=== PATIENT | female | born 1970 | race Caucasian/White ===

== ENCOUNTER 2017-11-24 00:20 | Emergency (ER) | payer OTHER, SELFPAY ==
[2017-11-24 00:22] VITALS: BP 121/89; PULSE 76; RESP 15; TEMP 36.3; BMI 35.4
--- NOTE | 2017-11-24 00:50 | ED.VISSUMM ---
- ER Visit Summary Date of Service: 11/24/17 Chief Complaint: Posterior right elbow redness History of Present Illness: The patient is a 47 F right-hand dominant. No prior surgery to her right elbow or upper extremity. Friday night she noticed some mild redness to her right posterior elbow. It has gotten somewhat larger. Minimally swollen. She has full range of motion the elbow. Only mild soreness. No prior history. Denies any recent trauma. She denies any fever. She thought initially some the may have bit her but never actually saw anything bite her. Physical Examination: Well-appearing middle-age female. Vital signs are stable afebrile. HEENT exam unremarkable lungs are clear equal symmetrical bilaterally. Heart regular rate and rhythm no murmur. She is moving all 4 extremities. They are neurovascularly intact. The right posterior elbow has about a 2 in.? area of redness. This could be a local allergic reaction versus an early cellulitis. There is no bursitis at this time. There is no effusion or swelling of the joint. She has full range of motion of the right elbow with no signs of septic joint. There is no lymphangitic streaking. There is no axillary lymphadenopathy. 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 Test Results: None. Patient was offered an x-ray from a fall she had a month ago which she deferred and clinically I doubt it was to be of significant benefit. Emergency Department Course and Treatment: Patient be started on Keflex 500 4 times daily for 10 days. Ice to the area. Motrin for pain and inflammation. She knows to return immediately if increasing pain or increasing redness or joint swelling. Treatment Plan: Keflex 500 mg 4 times a day for 10 days. Follow-up her primary care physician Dr. Reyna as needed. Disposition: Discharge Impression: Acute right posterior elbow superficial skin cellulitis This note was generated with [employer] dictation software. It may contain incorrect words, spelling, and punctuation that were not noted in review of the chart prior to signing ED Disposition - Plan for ED Patient: Chief Complaint: Upper Extremity Injury Referrals: Chele Reyna MD [Primary Care Provider] -
--- NOTE | 2017-11-24 00:52 | ED.DEP ---
ED Disposition - Plan for ED Patient: Disposition: Home or Assisted Living Chief Complaint: Upper Extremity Injury Instructions: ED Infec Skin Cellulitis Prescriptions: Cephalexin [Keflex] 500 mg PO Q6 #40 cap Referrals: Chele Reyna MD [Primary Care Provider] - As Needed Additional Instructions: This is either early skin infection versus a local allergic reaction. Keflex as an antibiotic he will take 1 pill 4 times a day for the next 10 days. Motrin for pain and inflammation. Return immediately if increasing redness, elbow swelling or severe pain. Follow-up with your doctor if not improving.
--- NOTE | 2017-11-24 00:55 | DCINST.ED_ITS ---
ED Disposition - Plan for ED Patient: Disposition: Home or Assisted Living Chief Complaint: Upper Extremity Injury Instructions: ED Infec Skin Cellulitis Prescriptions: Cephalexin [Keflex] 500 mg PO Q6 #40 cap Referrals: Chele Reyna MD [Primary Care Provider] - As Needed Additional Instructions: This is either early skin infection versus a local allergic reaction. Keflex as an antibiotic he will take 1 pill 4 times a day for the next 10 days. Motrin for pain and inflammation. Return immediately if increasing redness, elbow swelling or severe pain. Follow -up with your doctor if not improving.
[2017-11-24] MEDS: Cephalexin 250 MG Capsule 500 MG PO (00:58)
== END 2017-11-24 01:04 | disposition home or self-care (01) ==
LOC: ED 01:04
PROVIDERS: Emergency Provider Emergency Medicine; Family Provider Family Medicine; PCP Family Medicine
DX: L03.113 Cellulitis of right upper limb (principal)
CPT/HCPCS: 99282

== ENCOUNTER → 2017-12-05 06:40 | Outpatient (CLI) | payer OTHER, SELFPAY ==
--- NOTE | 2017-12-05 07:00 | MRI_ITS ---
STUDY: MRI LEFT FOREFOOT WITHOUT CONTRAST REASON FOR EXAM: Second toe pain for 6 months, no specific injury. TECHNIQUE: Standardized fat and water weighted pulse sequences were obtained in all 3 orthogonal planes. COMPARISON: None. FINDINGS: Normal metatarsophalangeal joint of the hallux. Normal tibial and fibular sesamoids, with normal sesamoids-first metatarsal articulations. Normal interphalangeal joint of the hallux. Normal proximal and distal phalanges of the great toe. Normal medial and lateral heads of the flexor hallucis brevis tendons. Normal flexor and extensor hallucis longus tendons. There is a tear of the lateral aspect of the plantar plate of the second metatarsophalangeal joint (T2 coronal series 9 images 17, 18; inversion recovery sagittal images 13, 14) with dorsal dislocation of the second metatarsophalangeal joint (T1 sagittal image 12). Normal third through fifth metatarsophalangeal (MTP) joints. Normal interphalangeal joints of the second through fifth toes. There is slight bone edema of the second metatarsal head and second proximal phalangeal base (inversion recovery sagittal images 12, 13). Normal proximal, middle and distal phalanges of the third through fifth toes. Normal first through fourth intermetatarsal spaces. Normal flexor and extensor tendons of the second through fifth toes. There is no metatarsal stress fracture. Normal intrinsic muscles of the forefoot. There is a small ganglion cyst dorsal to the navicular-medial cuneiform articulation (inversion recovery sagittal images 6, 7) measuring 1 cm in length. MRI/Lower Ext/No Jt/w/o IMPRESSION: Tear of the plantar plate of the second metatarsophalangeal joint with dorsal dislocation of the second metatarsophalangeal joint. Small ganglion cyst dorsal to the navicular-medial cuneiform articulation. Electronically Signed: Daniel Wolff MD at 9:09 EST Tel , Service support ,
== END ==
PROVIDERS: Family Provider Family Medicine; PCP Family Medicine; Visit Provider Podiatrist
DX: S93.149A Subluxation of metatarsophalangeal joint of unspecified toe(s), initial encounter (principal); M77.52 Other enthesopathy of left foot and ankle; X58.XXXA Exposure to other specified factors, initial encounter; Y93.9 Activity, unspecified; Y92.9 Unspecified place or not applicable; Y99.9 Unspecified external cause status
CPT/HCPCS: 73718

== ENCOUNTER 2018-01-12 11:15 | Day surgery (SDC) | payer OTHER, SELFPAY ==
[2018-01-12 11:48] LABS: Internal QC Validated? YES +Cl - CLEAR BKGD; Pregnancy, Urine Negative Negative
[2018-01-12 12:02] VITALS: BP 107/74; PULSE 70; RESP 16; TEMP 37.1; O2SAT 96; BMI 35.9
[2018-01-12 12:08] LABS: Absolute Lymphocyte Count 1.84 X10^3/ul (0.83-4.51); Absolute Neutrophil Count 4.7 X10^3/uL (2.0-7.7); Basophil# 0.03 X10^3/uL; Basophil% 0.4 % (0-1); Eosinophil# 0.08 X10^3/uL; Eosinophils% 1.1 % (0-5); Hematocrit 40.1 % (37-47); Hemoglobin 14.1 g/dl (12.0-15.0); Lymphocyte # 1.84 X10^3/ul (4.0); Lymphocyte % 25.5 % (19-41); Mean Corp Hgb Conc 35.2 g/gl (32-36); Mean Corpuscular Volume 85.3 fL (81-99); Mean Platelet Vol. 9.6 fl (6.2-12.0); Monocyte# 0.56 X10^3/uL; Monocyte% 7.8 % (0-10); Neutrophil # 4.67 X10^3/uL (2.7-7.7); Neutrophil % 64.8 % (47-70); Platelet Count 194 K/mm3 (150-450); RBC Distribution Width SD 36.7 fl (35.1-43.9); White Blood Count 7.2 K/mm3 (4.4-11.0)
[2018-01-12 12:12] LABS: POSITIVE COUNT NO; POSITIVE DIFFERENTIAL NO; POSITIVE MORPHOLOGY NO
[2018-01-12 12:24] LABS: AST(SGOT) 12 U/L (15-37); Alanine Aminotransfer ALT/SGPT 15 U/L (13-56); Albumin, Serum 3.5 g/dL (3.2-5.0); Alkaline Phosphatase 58 U/L (45-117); Anion Gap 8 (5-15); BUN 13 mg/dL (7-18); BUN/Creat Ratio 19.6 RATIO (10-20); Calcium,Total 8.3 mg/dL (8.5-10.1); Chloride 108 mmol/L (98-107); Creatinine, Serum 0.66 mg/dL (0.55-1.02); EST Glomerular Filtration Rate 101 mL/min (>60); Est Glom Filt Rate - Afr Amer 122 mL/min (>60); Estimated Creatinine Clearance 89.04 ml/min; Globulin 3.6 g/dL (2.2-4.2); Glucose 83 mg/dL (74-106); Protein, Total 7.1 g/dL (6.4-8.2); Sodium Level 139 mmol/L (136-145)
--- NOTE | 2018-01-12 13:00 | RAD_ITS ---
STUDY: X-RAY - RIGHT FOOT CLINICAL: Female, 47 years old. right foot pain, repair 2nd metatarsal phalangeal plantar plate TECHNIQUE: 2 view(s) of the foot. COMPARISON: None. FINDINGS: Postoperative changes noted in the distal second metatarsal where hardware has been placed. No postoperative complication noted. There is normal postoperative soft tissue swelling and subcutaneous emphysema. There is also been osteotomy in the distal aspect of the second proximal phalanx. RAD/Foot 2 Views IMPRESSION: Postoperative changes to the second metatarsal head and distal aspect of the second proximal phalanx. Electronically Signed: Dat Muir MD at 17:41 EDT , Service support ,
--- NOTE | 2018-01-12 13:00 | BON_PTH ---
PATIENT: KIERRA FRIEDMAN [place] [facility] [place][id number] AGE/SX: 47/F ROOM: RE01/12/[address]: Dr. Jose F Fox DPM : 1970 BED: DIS: 01/12/2018 SPEC #: [id number] RECD: 01/12/18 15:52 STATUS: SHIELA REAn #: [id number] SHANICE: 01/12/18 13:[address]: Jose F Fox DEPT: SURGICAL PATHOLOGY RECD BY: Rafy Lakhani ENTERED: 01/13/18 10:48 SP TYPE: Bone OTHR DR: Dr. Chele Reyna MD Tissues: Bone of foot, NOS Procedures: Decalcification bone/plaque Surgery Specimen Level III HEADER OPERATION: Left foot, repair 2nd metatarsophalangeal plantar plate PRE-OP DIAGNOSIS: Torn plantar plate, second MTPJ left foot; second digit hammertoe, left TISSUE SUBMITTED: Second toe left bone MICROSCOPIC DIAGNOSIS Second toe bone: A piece of bone with reactive changes, clinically hammertoe. MUNIR:orly 01/20/18 MICROSCOPIC DESCRIPTION Slides are reviewed. GROSS DESCRIPTION Received in fixative is one container labeled with the patient's name and designated left second toe bone. The specimen consists of a piece of bone measuring 1 x 0.5 x 0.5 cm. The entire specimen is submitted in one cassette after decalcification. / MUNIR:orly 01/13/18 TC:5 [facility]: [id number]
[2018-01-12] MEDS: Cefazolin 2 GM in 0.9% Normal Saline 100 ML IV (13:05)
[2018-01-12] MEDS: Bupivacaine 0.25% 30 ML Vial (13:17)
--- NOTE | 2018-01-12 14:51 | PCM.OPRPT ---
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 There is instability of the 2nd MTPJ plantar plate with positive dorsal drawer test. This was There is contracture of the 2nd toe. She has been treated with conservative/nonsurgical management, but symptoms persists and she continues to have pain and symptoms. She elected to undergo surgery. We discussed the procedures. We reviewed the rationale of each as well as the possible benefits, risks, potential complications goals and expectations of each. The alternative options were discussed. This was discussed with her in great detail. Typical post op recovery was reviewed with her. She expressed understanding and agreement. The consent forms were reviewed with her in detail, and she freely signed them. No guarantees were given or implied. All of her questions were answered. Operative Procedure: The patient was brought back into the operating room and was placed on the operating room table in the supine position. She was carefully secured to the operating room table with a safety belt around her waist. A time out was performed and the patient was properly identified and the surgical plan was confirmed. The patient received 2 grams of IV Ancef for antibiotic prophylaxis. A well padded pneumatic tourniquet was applied around her left ankle. The patient did MAC anesthesia per the anesthesiologist. The left foot was cleansed with 70% Isopropyl alcohol, and 10 mL of 0.25% Bupivacaine was given as a local nerve block around the 2nd ray on the left foot. The left foot was scrubbed, prepped, draped in the usual aseptic fashion. Attention was directed to the left 2nd toe, which was contracted as 2nd ray on the left foot. There was positive dorsal drawer and instability to the 2nd MTPJ. A timeout was performed and the patient was properly identified and the surgical plan was confirmed. The left foot was exsanguinated using an Esmarch bandage, and the left ankle pneumatic tourniquet was inflated to 250mmHg. Using a 15 blade a linear longitudinal skin incision was overlying the dorsal aspect of the lateral aspect of the distal 2nd metatarsal and 2nd metatarsal phalangeal joint (MTPJ). Careful dissection was completed down through the subcutaneous layer to the dorsal 2nd MTPJ capsule. The capsule of the 2nd MTPJ was identified and was carefully incised dorsally, it was partially reflected exposing the 2nd metatarsal head and base of the proximal phalanx of the 2nd toe. It was noted the plantar plate was completed ruptured. It was also noted there were degenerative changes of the 2nd MTPJ, both on the 2nd metatarsal head as well as the base of the 2nd toe proximal phalanx. The degenerative changes on the base of the 2nd toe proximal phalanx were more severe with significant wearing away of the joint surface along with some mild partial fragmentation. A McGlamry metatarsal elevator was used to release the plantar adhesions of the 2nd MTPJ. A Alejandra osteotomy was completed to the 2nd metatarsal using a powered sagittal saw. This osteotomy was made parallel to the weightbearing surface. The 2nd metatarsal head was shifted proximally and the joint, and temporarily fixated using a kwire. The plantar plate was visualized, it was noted that the plantar plate was completed torn and ruptured at the level of the 2nd MTPJ with thickening and some degenerative changes present. The plantar plate of the 2nd MTPJ was reapproximated and repaired with the Arthrex CRP Scorpion hand piece and FiberTape. A drill hole was placed through the base of the proximal phalanx of the 2nd toe and the FiberTape was placed through the drill hole from plantar to dorsal. The temporary fixation (kwire) was removed from the 2nd metatarsal, and the 2nd metatarsal head was reapproximated, gently shortening but keeping it inline with the parabola of the metatarsals. The 2nd metatarsal was fixated with two Arthrex snap off screws from the CPR kit. The 2nd toe was placed in rectus position and the FiberTape was pulled taut. An Arthrex Tenodesis screw was placed in the drill hole at the level of the base of the proximal phalanx 2nd toe. At this time there was excellent stability to the plantar plate, and there was a negative dorsal drawer. There was complete repair of the plantar plate. There was noted to be rectus position to the 2nd MTPJ with excellent stability present. The site was flushed out with copious amounts of normal saline solution. The subcutaneous tissue layer was reapproximated using 3-0 Vicryl, and the skin was reapproximated using 3-0 Monocryl. Cavilon was painted to the sutured skin edges and steristrips were applied across the sutured skin incisions. Attention was directed to the right 2nd toe which was noted to be contracted consistent with a hammer toe. Two semi-elliptical conversing skin incisions were made using a 15 blade overlying the dorsal proximal interphalangeal joint. The skin within these incisions was excised. Careful dissection was completed down to the extensor digitorum longus tendon and it was incised transversely over the joint, and it was retracted exposing the proximal interphalangeal joint capsule. The proximal interphalangeal joint capsule was incised and the collateral ligament of the joint were released using a 15 blade. The head of the 2nd toe proximal phalanx was resected using a powered sagittal saw. The site was flushed out with copious amounts of normal saline solution. The extensor digitorum longus tendon was reapproximated using 4-0 Vicryl, and the skin was reapproximated using 3-0 Monocryl. All vital structure, including all vital neurovascular structures were properly identified and protected as necessary throughout the above procedures. The pneumatic tourniquet was deflated at the 86 minute tangela, there was immediate return of vascular flow to the foot and all toes. CFT < 2 seconds to all toes, and had normal temperature gradient present. Hemostasis was achieved. An additional 10mL of 0.5% Bupivacaine plain was given as a local nerve block around the 2nd rays for further anesthesia. A dressing was applied which consisted of Betadine soaked adaptic, 4x4 gauze, Kerlix and karolyn dressing to the left foot. The patient tolerated the above operative procedure well at the anesthesia well with no complications. The patient was transported to the recovery room with vital signs stable and in good condition. Post operative orders were placed. Post operative instructions were reviewed with her as well as with her who was with her today. No weightbearing left foot, keep left foot elevated for at least 50 minutes of every hour, keep dressing clean, dry and intact. Prescription for Vicodin 5mg/325mg was prescribed: 1-2 tabs PO q 6 hours PRN pain for pain control. She was dispensed a surgical shoe. Patient to follow up in 1 week in office or sooner if needed. Post operative xrays were obtained in the recovery room which confirmed 2nd metatarsal osteotomy, and arthroplasty of the 2nd toe, intact screws to the 2nd metatarsal head. 2nd MTPJ in good alignment, and there is good bone to bone contract at the 2nd metatarsal osteotomy site with no gapping. Post operative alignment well maintained. Otherwise no acute changes and stable xrays. Grafts/Implants Used: Arthrex tenodesis screw, FiberTape - Complications None
[2018-01-12 14:54] VITALS: BP 102/67; BP 107/74; PULSE 81; RESP 14; TEMP 36.2; O2SAT 94
--- NOTE | 2018-01-12 14:54 | PCM.DC.POD ---
Discharge Diet: Light diet - advance as tolerated Discharge Activity: May Not Drive Weight Bearing Status: No weight bearing - No weightbearing left foot Keep extremity elevated above heart level: Left Leg - Keep left foot elevated with pillows at or above chest level for at least 50 minutes of every hour Call your doctor if your incision/area has: Continuous Slow Oozing, Sudden Increased Bleeding, Foul Smelling Discharge Call your doctor if you observe: Fever of 101 or Higher, Coldness, Increased Pain, Shortness of breath, Chest pain, Increased palpitations (irregular heartbeat), Calf discomfort, Uncontrolled pain Cleanse incision/area with: Do not get Incision Wet, Keep Dressing Clean & Dry Allergies/Adverse Reactions: Allergies Sulfa (Sulfonamide Antibiotics) Allergy (Verified 01/05/18 14:33) Unknown Medications to take at Discharge Hydrocodone/Acetaminophen [Vicodin 5-300 mg Tablet] 1 - 2 tab PO Q6H PRN PRN 3 Days #30 tab 01/12/18 The following prescriptions were given: Hydrocodone/Acetaminophen [Vicodin 5-300 mg Tablet] 1 - 2 tab PO Q6H PRN PRN 3 Days #30 tab PRN Reason: Pain Primary Care Physician: Chele Reyna MD [Primary Care Provider] - Please Follow Up With: Jose F Fox DPM When: within 1 week, sooner if needed
[2018-01-12 15:00] VITALS: BP 106/77; BP 107/74; PULSE 84; RESP 16; O2SAT 98
[2018-01-12 15:05] VITALS: BP 101/77; BP 107/74; PULSE 76; RESP 16; O2SAT 100
--- NOTE | 2018-01-12 15:05 | RAD_ITS ---
STUDY: X-RAY - LEFT FOOT CLINICAL: Female, 47 years old. Postop second metatarsal fracture TECHNIQUE: 3 view(s) of the foot. COMPARISON: None. FINDINGS: Normal talus,and tarsal bones. Calcaneal spurs. Normal visualized subtalar, talonavicular, calcaneocuboid, tarsal and tarsometatarsal articulations. Postoperative changes noted in the distal second metatarsal where hardware has been placed. No postoperative complication noted. There is normal postoperative soft tissue swelling and subcutaneous emphysema. There is also been osteotomy in the distal aspect of the second proximal phalanx. Other metatarsi are unremarkable. Normal metatarsophalangeal joint of the great toe. Normal tibial and fibular sesamoid bones. Normal interphalangeal joint of the great toe. Normal phalanges of the great toe. Normal second through fifth metatarsophalangeal joints. Normal interphalangeal joints and phalanges of the lesser toes. The soft tissue structures are unremarkable. RAD/Foot min 3 Views IMPRESSION: Postoperative changes to the second metatarsal head and distal aspect of the second proximal phalanx. No postoperative complication noted. Normal postoperative soft tissue swelling and subcutaneous emphysema Calcaneal spurs Electronically Signed: Srini Peters MD at 16:03 EDT , Service support ,
[2018-01-12 15:11] VITALS: BP 101/79; BP 107/74; PULSE 75; RESP 16; TEMP 36.6; O2SAT 100
== END 2018-01-12 15:55 | disposition home or self-care (01) ==
LOC: SDC 11:16 → AC 11:17
PROVIDERS: Anesthesiology; Family Provider Family Medicine; PCP Family Medicine; Visit Provider Podiatrist
PROC: (CPT 28285; principal; 2018-01-12 12:45)
DX: M20.42 Other hammer toe(s) (acquired), left foot (principal); M19.072 Primary osteoarthritis, left ankle and foot; Z86.2 Personal history of diseases of the blood and blood-forming organs and certain disorders involving the immune mechanism
CPT/HCPCS: 01480; 28285; 28308; 73620; 73630; 76000; 80053; 81025; 85025; 88304; 88305; 88311; J7120

== ENCOUNTER 2019-04-29 17:38 | Observation (INO) | payer OTHER, SELFPAY ==
[2019-04-29] VITALS (9 sets, daily range): BP systolic 111–128; BP diastolic 70–87; PULSE 73–111; RESP 14–16; TEMP 36.2–37.2; O2SAT 92–98; BMI 35.4; BMI 37.8; BMI 37.9
--- NOTE | 2019-04-29 18:10 | CT_ITS ---
STUDY: CT ABDOMEN AND PELVIS WITH CONTRAST REASON FOR EXAM: Female, 48 years old. Abdominal pain RADIATION DOSAGE (If Supplied By Facility): CTDIvol = ( 19.86 ) mGy, DLP = ( 1251.50 ) mGycm TECHNIQUE: Transaxial images were obtained from the dome of the diaphragm to the symphysis pubis with oral contrast. 100ML IV/Oral Isovue 300 was administered. Sagittal and coronal images were reconstructed. Individualized dose optimization techniques were used for this CT. COMPARISON: None. FINDINGS: The visualized lung bases are unremarkable. The visualized portions of the heart are within normal limits. Normal liver. Normal gallbladder and extrahepatic biliary system. Normal spleen. Normal pancreas. Normal bilateral adrenal glands. Normal right kidney. Normal left kidney. Normal visualized stomach. Normal small intestine. Normal colon. There is a tubular, thick-walled appendix (>7mm), consistent with acute appendicitis. Normal abdominal aorta. Normal inferior vena cava. Normal retroperitoneum. Normal urinary bladder. Unremarkable uterus; exophytic uterine fibroid Normal abdominal wall. Normal osseous structures. CT/Abdomen/Pelvis WITH Contrast IMPRESSION: Acute uncomplicated appendicitis Electronically Signed: Dave Millard DO at 20:21 EDT Tel , Service support ,
[2019-04-29 18:28] LABS: Bacteria 0 SEEN /hpf (None Seen)
[2019-04-29] MEDS: 0.9% Normal Saline 1,000 ML 125 ML IV (18:29)
[2019-04-29 18:34] LABS: Color, Urine Yellow (Yellow); Glucose, Dipstick Normal (Normal); Ketone-Dipstick Negative (Negative); Leukocyte Esterase-Dipstick 25 /ul (Negative); Nitrite-Dipstick Negative (Negative); Occult Blood-Urine 150 /ul (Negative); Protein-Dipstick 15 mg/dl (Negative); Urine Bilirubin Dipstick Negative (Negative); Urine Clarity Sl. Cloudy (Clear); Urine Urobilinogen Normal (Normal)
[2019-04-29 18:38] LABS: Absolute Lymphocyte Count 1.94 X10^3/ul (0.83-4.51); Absolute Neutrophil Count 11.1 X10^3/uL (2.0-7.7); Basophil# 0.02 X10^3/uL; Basophil% 0.1 % (0-1); Eosinophil# 0.02 X10^3/uL; Eosinophils% 0.1 % (0-5); Hematocrit 40.1 % (37-47); Hemoglobin 13.9 g/dl (12.0-15.0); Lymphocyte # 1.94 X10^3/ul (4.0); Lymphocyte % 13.6 % (19-41); Mean Corp Hgb Conc 34.7 g/gl (32-36); Mean Corpuscular Hgb 29.8 pg (27.0-32.0); Mean Corpuscular Volume 86.1 fL (81-99); Monocyte% 8.4 % (0-10); Neutrophil # 11.08 X10^3/uL (2.7-7.7); Neutrophil % 77.6 % (47-70); Platelet Count 204 K/mm3 (150-450); RBC Distribution Width CV 12.8 % (11.6-14.6); Red Blood Count 4.66 M/mm3 (4.2-5.4); White Blood Count 14.3 K/mm3 (4.4-11.0)
[2019-04-29 18:39] LABS: POSITIVE COUNT NO; POSITIVE DIFFERENTIAL NO; POSITIVE MORPHOLOGY NO
[2019-04-29 18:42] LABS: Red Blood Cells-Urine 5-10 SEEN /hpf (0-5); Squamous Epithelial Cells - UA 10-25 SEEN /hpf (5-10); White Blood Cells 0-5 SEEN /hpf (0-5)
[2019-04-29 18:43] LABS: Amorphous Sediment 1+ URATE; Mucous, Urine RARE /hpf (<or=2+)
[2019-04-29 18:46] LABS: AST(SGOT) 18 U/L (15-37); Alanine Aminotransfer ALT/SGPT 21 U/L (13-56); Albumin, Serum 3.6 g/dL (3.2-5.0); Alkaline Phosphatase 57 U/L (45-117); Anion Gap 8 (5-15); BUN 11 mg/dL (7-18); BUN/Creat Ratio 12.4 RATIO (10-20); Calcium,Total 8.5 mg/dL (8.5-10.1); Chloride 105 mmol/L (98-107); Creatinine, Serum 0.88 mg/dL (0.55-1.02); EST Glomerular Filtration Rate 72 mL/min (>60); Est Glom Filt Rate - Afr Amer 87 mL/min (>60); Estimated Creatinine Clearance 63.27 ml/min; Globulin 3.5 g/dL (2.2-4.2); Glucose 104 mg/dL (74-106); Protein, Total 7.1 g/dL (6.4-8.2); Sodium Level 139 mmol/L (136-145)
[2019-04-29 19:21] LABS: Internal QC Validated? YES +Cl - CLEAR BKGD
[2019-04-29 19:22] LABS: Pregnancy, Serum, hCG Quali. NEGATIVE Negative
--- NOTE | 2019-04-29 20:10 | ED.DCSUM_ITS ---
- ER Visit Summary Date of Service: 04/29/19 Chief Complaint: [Abdominal pain] History of Present Illness: The patient is a 48 F [presents to the emergency department with complaint of abdominal pain that started this morning 5 or 6 AM. Patient states that last evening she began with vomiting and threw up 130 times. She denies any diarrhea. Patient states the pain is not continuous in the right lower quadrant and worsening. She rates it as a 5 or 6 out of 10. Patient had subjective fever at home and chills. She denies urinary symptoms other than some frequency. Patient has no medical history. Patient has no prior surgical history.] Physical Examination: [HEENT-PERRLA, EOMI. Cranial nerves II through XII grossly intact. TMs clear. Mucous membranes moist. No adenopathy. Cardiovascular-regular rate and rhythm without murmur or ectopy Lungs-clear to auscultation, chest wall stable without crepitus or subcu emphysema Abdomen-normoactive bowel sounds, soft. Patient has tenderness palpation of the right lower quadrant with guarding. There is no rebound, rigidity, cranial signs. Patient does have tenderness over McBurney's and a positive Rovsing sign. Extremities-intact ?4, normal range of motion, normal pulses, atraumatic] Test Results: [CBC with differential obtained showed an elevated white blood cell count of 14.3, hemoglobin 14, hematocrit 40, placed 204. Chemistries were normal. LFTs were normal. Urinalysis was normal. hCG was negative. CT scan of the abdomen and pelvis on my interpretation shows a dilated appendix that does not fill with contrast with periappendiceal streaking and inflammation. Official report from radiology pending.] Emergency Department Course and Treatment: [Patient was started on Zosyn 4.5 g IV. Case was discussed with Dr. Jaqueline Maza who is on for general surgery and will evaluate patient in the emergency department.] Treatment Plan: [Admit for surgical intervention] Disposition: [Admit] Impression: [Acute appendicitis] This note was generated with [employer] dictation software. It may contain incorrect words, spelling, and punctuation that were not noted in review of the chart prior to signing ED Disposition - Plan for ED Patient: Referrals: Chele Reyna MD [Primary Care Provider] -
--- NOTE | 2019-04-29 20:40 | HP.PCM_ITS ---
History and Physical Date of Admission: 04/29/19 CC: abdominal pain HPI: 48 y/o WF presented to express care at triage [facility] at [facility] with the chief complaint of severe right lower quadrant pain over the past couple days. This has occurred since last night and she was in pain most of the night. She's had fever and vomiting as well. She has not been able to eat all day due to pain and nausea. Patient hunched over and clutching her abdomen when walking. She went to ED at [facility]. Evaluation at ED at [facility] - Labs: WBC is 14.3k with left shift of differential CT scan findings - tubular thick walled appendix >7mm PAST MEDICAL HISTORY: denies major medical illnesses PAST SURGICAL HISTORY: foot surgery bilateral breast implants MEDICATIONS albuterol prn aleve prn flexeril prn Allergies: sulfa Social: , lives with , denies TOB use Review of systems: denies fevers, denies weight loss, has anorexia with abdominal pain, denies blood in stools, denies hematemesis, denies blood in urine, denies hemoptysis, denies shortness of breath, denies chest pain, denies seizure activity, denies numbness/weakness of extremities Physical examination: Ht: 5'3 Wt: 212# General: WD/WN WF in no acute distress with abdominal pain, alert and oriented Head: normocephalic, atraumatic Mouth: mucus membranes moist Neck: supple Lungs: clear to auscultation, no labored breathing noted Heart: normal heart sounds, regular rhythm and rate Abdomen: soft and obese and tender in right lower quadrant with guarding Extremities: no pitting edema noted Neuro: non focal Psych: normal affect Labs: WBC is 14.3k with left shift of differential CT scan findings - tubular thick walled appendix >7mm Impression: right lower quadrant abdominal pain leukocytosis abnormal appendix by CT scan Discussion/Plan: I have discussed the above with the patient. The patient has signs/symptoms of acute appendicitis. I have offered the patient the procedure of laparoscopic appendectomy. I have explained the procedure to the patient. I have counseled the patient as to the risks of the procedure, including but not limited to: infection, bleeding, injury to any blood vessels/nerves, scar tissue, injury to any intraabdominal organs, injury to kidney/ureters, injury to bowel/bladder, intraabdominal abscess/bleeding, hernias at incisional sites, wound infections, possible open procedure, complications of anesthesia, postoperative pneumonia/cardiac problems/blood clots etc. the patient understands. She agrees to proceed. I have answered all questions to the patient?s satisfaction and the patient has no further questions.
--- NOTE | 2019-04-29 21:15 | APP_PTH ---
PATIENT: KIERRA FRIEDMAN LOC: MS3 U#:[id number] AGE/SX: 48/F ROOM: PR308 RE04/29/[address]: Dr. Jaqueline Maza MD : [id number] BED: 1 DIS: 04/30/2019 SPEC #: [id number] RECD: 04/30/19 07:42 STATUS: SHIELA REQ #: [id number] SHANICE: 04/29/19 21:[address]: Jaqueline Maza DEPT: SURGICAL PATHOLOGY RECD BY: Estela Aponte ENTERED: 04/30/19 11:41 SP TYPE: APPENDIX OTHR DR: Dr. Chele Reyna MD Tissues: Appendix, NOS Procedures: Surgery Specimen Level III HEADER OPERATION: Laparoscopic, appendectomy PRE-OP DIAGNOSIS: Acute appendicitis TISSUE SUBMITTED: Appendix MICROSCOPIC DIAGNOSIS Appendix, appendectomy: Acute necrotizing appendicitis. Acute serositis. AM:orly 05/03/19 MICROSCOPIC DESCRIPTION Slides are reviewed. GROSS DESCRIPTION Received is one container labeled with the patient's name and designated appendix. The specimen consists of an appendix measuring 6 cm in length and up to 1 cm in diameter. The attached periappendiceal adipose tissue measures up to 3 cm in width. The serosa is covered with paniagua, purulent exudate. No obvious perforation is identified. The mucosa is congested. The lumen is pinpoint. No fecalith is identified. Hydraulic Auto Jack Mechanic sections are submitted in one cassette. / SJ:orly 04/30/19 TC:2 [facility]: [id number]
[2019-04-29] MEDS: Bupiv/Epi 0.25% 30 ML Vial (21:45)
--- NOTE | 2019-04-29 22:18 | PCM.OPRPT ---
Report of Operation Date of Procedure: 04/29/19 Pre-Operative Diagnosis: acute appendicitis Post-Operative Diagnosis: same Surgery/Procedure Performed:: laparoscopic appendectomy Description of Surgical Findings:: acute appendicitis no perforation, purulent (pus) fluid in pelvis, possible endometriosis, large pedunculated fibroid lesion off uterus Type of Anesthesia:: General Anesthesiologist: Kendrick Osborn Specimen's removed: appendix Estimated Blood Loss (mL): < 10 Fluids Replaced: 1000 ml RL Description of Procedure: After informed consent was obtained, the patient was brought into the operating room. Appropriate time out protocol was followed. She was then placed in the supine position on the operating table. The patient was then placed under general anesthesia. The patient?s abdomen was then prepped with a sterile surgical skin preparation and sterile surgical drapes were placed. The infraumbilical skin fold was grasped with penetrating clamps and the skin and subcutaneous tissues were infiltrated with 0.25% marcaine with epinephrine. A skin incision was then made. A Veress needle was then inserted into the intraabdominal cavity and checked to be in the proper position with a normal saline drop test. A CO2 pneumoperitoneum was then created. Once this was achieved, the Veress needle was removed and a 5 mm trocar was placed in its stead. A 5 mm laparoscope was then inserted into the trocar. Careful examination of the intraabdominal contents was then done. There was no evidence of injury to any internal organs from placement of the Veress needle or the trocar. Under direct visualization, a 12mm suprapubic trocar and a 5mm left lower quadrant trocar was then placed into the intraabdominal cavity. The skin and subcutaneous tissues at these sites were first infiltrated with 0.25% marcaine with epinephrine. Attention was then directed to the right lower quadrant. The appendix was visualized. It was inflamed and edematous and fibrinous exudate was noted. The mesentary of the appendix was also indurated and edematous. The mesentery of the appendix was taken down by cauterizing the tissue from the free edge to the base of the appendix with the Harmonic scalpel. Once the base of the appendix was freed of surrounding tissues, then the linear gastrointestinal stapling device was brought into the abdominal cavity via the 12mm port and placed across the base of the appendix. The stapling device was fired, thus stapling across the base of the appendix and transecting it simultaneously. The appendix was then placed in an Endobag and this was brought out through the suprapubic trocar. The appendix was then forwarded to Pathology for analysis. The appendiceal stump was carefully examined. Surgicel was applied to the base for inflammatory oozing. There was no evidence of any active bleeding or fecal leakage. The surrounding tissues were also examined and there was no evidence of any active bleeding or fecal/bile leakage. The intraabdominal cavity was examined. In the pelvis, there was noted to be purulent fluid (pus) and also some chronic inflammatory changes in the cul-de-sac. There was also a pedunculated fibroid lesion left anteriorly coming off the uterus that was a few centimeters in diameter. There also appeared to be pigmented lesions in the culdesac which may represent areas of endometriosis. The pelvis was vigorously irrigated with normal saline and all irrigation was aspirated out. The CO2 pneumoperitoneum was released and all trocars were removed intact. The suprapubic fascia was reapproximated with a figure-of-8 vicryl suture. All skin incisions were reapproximated with monocryl suture. Cavilon and steristrips were applied to reinforce skin closure and proper sterile dressings were placed. The patient was then extubated and brought to the Recovery Room in stable condition. - Complications none noted - Admit VTE Documentation VTE Present on Admission: Yes VTE Mechan Device Prophylaxis: SCD's
[2019-04-30 01:13] VITALS: BP 116/70; PULSE 61; RESP 16; TEMP 36.7; O2SAT 95
[2019-04-30] MEDS: Lactated Ringers 1,000 ML 100 ML IV (01:18)
[2019-04-30 03:22] VITALS: BP 117/61; PULSE 77; RESP 16; TEMP 36.8; O2SAT 94
--- NOTE | 2019-04-30 07:36 | PN.SURG_ITS ---
Subjective: Patient feeling greatly improved, minimal pain, taking motrin would be fine for her - Physical Exam General: Alert, Oriented x3 Vital Signs Temp Pulse Resp BP Pulse Ox 98.2 F 77 16 117/61 94 04/30/19 03:22 04/30/19 03:22 04/30/19 03:22 04/30/19 03:22 04/30/19 03:22 Oxygen Flow Rate (L/min) 2 Oxygen Delivery Method Nasal Cannula Weight: 97.2 kg Body Mass Index (BMI) 37.9 Intake and Output for Last 24 Hours 04/28/19 04/29/19 04/30/19 23:59 23:59 23:59 Intake Total 800 / 800 884 / 884 Output Total 400 / 400 Balance 800 / 800 484 / 484 Laboratory Tests Past 24 Hrs 04/29/19 04/29/19 04/29/19 18:20 18:20 18:20 WBC 14.3 H RBC 4.66 Hgb 13.9 Hct 40.1 MCV 86.1 MCH 29.8 MCHC 34.7 RDW 12.8 RDW Differential 40.0 Plt Count 204 MPV 10.0 Immature Gran % (Auto) 0.200 Neut % (Auto) 77.6 H Lymph % (Auto) 13.6 L Treasure % (Auto) 8.4 Eos % (Auto) 0.1 Baso % (Auto) 0.1 Absolute Neuts (auto) 11.1 H Absolute Lymphs (auto) 1.94 Total Counted Not Reportable Sodium 139 Potassium 4.0 Chloride 105 Carbon Dioxide 26.0 Anion Gap 8 BUN 11 Creatinine 0.88 Estim Creat Clear Calc 63.27 Est GFR (MDRD) Af Amer 87 Est GFR (MDRD) Non-Af 72 BUN/Creatinine Ratio 12.4 Glucose 104 Calcium 8.5 Total Bilirubin 0.70 AST 18 ALT 21 Alkaline Phosphatase 57 Total Protein 7.1 Albumin 3.6 Globulin 3.5 Albumin/Globulin Ratio 1.0 Serum , Qual NEGATIVE Urine Color Urine Clarity Urine pH Ur Specific [place] Urine Protein Urine Glucose (UA) Urine Ketones Urine Occult Blood Urine Nitrite Urine Bilirubin Urine Urobilinogen Ur Leukocyte Esterase Urine RBC Urine WBC Ur Squamous Epith Cells Amorphous Sediment Urine Bacteria Urine Mucus 04/29/19 18:21 WBC RBC Hgb Hct MCV MCH MCHC RDW RDW Differential Plt Count MPV Immature Gran % (Auto) Neut % (Auto) Lymph % (Auto) Treasure % (Auto) Eos % (Auto) Baso % (Auto) Absolute Neuts (auto) Absolute Lymphs (auto) Total Counted Sodium Potassium Chloride Carbon Dioxide Anion Gap BUN Creatinine Estim Creat Clear Calc Est GFR (MDRD) Af Amer Est GFR (MDRD) Non-Af BUN/Creatinine Ratio Glucose Calcium Total Bilirubin AST ALT Alkaline Phosphatase Total Protein Albumin Globulin Albumin/Globulin Ratio Serum , Qual Urine Color Yellow Urine Clarity Sl. Cloudy Urine pH 6.0 Ur Specific [place] 1.010 Urine Protein 15 H Urine Glucose (UA) Normal Urine Ketones Negative Urine Occult Blood 150 H Urine Nitrite Negative Urine Bilirubin Negative Urine Urobilinogen Normal Ur Leukocyte Esterase 25 H Urine RBC 5-10 SEEN Urine WBC 0-5 SEEN Ur Squamous Epith Cells 10-25 SEEN Amorphous Sediment 1+ URATE Urine Bacteria 0 SEEN Urine Mucus RARE Medical Necessity - Tobacco Use Smoking Status: Never smoker Assessment/Plan Impression: POD#1 s/p laparoscopic appendectomy Plan: d/c to home discharge medications - antibiotics due to purulent fluid in pelvis
--- NOTE | 2019-04-30 07:37 | PCM.DC.APPY ---
Discharge Diet: No Restrictions - avoid carbonated beverages for a couple of days drink plenty of fluids Discharge Activity: Return to Normal Activity, May not drive while taking narcotic pain medications. Lifting Restrictions: no lifting greater than 20 pounds for 2 weeks Call your doctor if your incision/area has: Continuous Slow Oozing, Foul Smelling Discharge Call your doctor if you observe: Fever of 101 or Higher Additional Dressing/Incision Instructions:: Leave dressings in place. May get wet in shower. Do not soak - no tub baths/swimming Medications to take at Discharge Acetaminophen [Tylenol Extra Strength] 1,000 mg PO Q6H PRN PRN 04/29/19 Ibuprofen 400 mg PO DAILY PRN PRN 04/29/19 Hydrocodone/Acetaminophen [[place] 5-325 Tablet] 1 ea PO Q8 PRN 3 Days #6 tab 04/30/19 Allergies/Adverse Reactions: Allergies Sulfa (Sulfonamide Antibiotics) Allergy (Verified 04/29/19 23:21) Itching used Sulfa eye drops The following prescriptions were given: Hydrocodone/Acetaminophen [[place] 5-325 Tablet] 1 ea PO Q8 PRN 3 Days #6 tab PRN Reason: Mod-Severe Pain (4-10/10) Prescription Printed Primary Care Physician: Chele Reyna MD [Primary Care Provider] - Test Results: Test results from this visit will be discussed in further detail at your follow-up appointment, if applicable. Please Follow Up With: Jaqueline Maza MD - call When: to be seen in 1-2 weeks, please call for date and time, thank you
[2019-04-30 07:45] VITALS: O2SAT 94
[2019-04-30 10:00] VITALS: BP 117/86; PULSE 81; RESP 18; TEMP 36.8; O2SAT 96
== END 2019-04-30 11:22 | disposition home or self-care (01) ==
LOC: ED 18:44 → MS3 20:23 → SDC 20:42 → MS3 20:43 → SDC 04-30 07:07
PROVIDERS: Admitting Provider Surgery; Emergency Provider Emergency Medicine; Family Provider Family Medicine; PCP Family Medicine; Referring Provider Surgery; Visit Provider Surgery
PROC: 0DTJ4ZZ Resection of Appendix, Percutaneous Endoscopic Approach (ICD-10-PCS; CPT 44970; principal; 2019-04-29 21:15)
DX: K35.80 Unspecified acute appendicitis (principal)
CPT/HCPCS: 00840; 44970; 74177; 80053; 81001; 84703; 85025; 88304; 96361; 96365; 96366; 99218; 99284; J7030; J7120; Q9967; A4216; G0378; J2405

== ENCOUNTER 2019-07-17 19:50 | Emergency (ER) | payer OTHER, SELFPAY ==
[2019-04-29 23:13] VITALS: BMI 37.9
[2019-07-17 19:50] VITALS: BP 121/76; PULSE 104; RESP 15; TEMP 36.6; O2SAT 96; BMI 38.7
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
[2019-07-17] MEDS: Diphth,Pertuss(Acell),Tet Vac 0.5 ML Vial IM (20:57)
[2019-07-17] MEDS: Ibuprofen 600 MG Tablet PO (20:57)
== END 2019-07-17 21:32 | disposition home or self-care (01) ==
PROVIDERS: Emergency Provider Emergency Medicine; Family Provider Family Medicine; PCP Family Medicine
DX: S30.1XXA Contusion of abdominal wall, initial encounter (principal); S93.401A Sprain of unspecified ligament of right ankle, initial encounter; S20.212A Contusion of left front wall of thorax, initial encounter; S60.812A Abrasion of left wrist, initial encounter; S60.512A Abrasion of left hand, initial encounter; S60.419A Abrasion of unspecified finger, initial encounter; S40.012A Contusion of left shoulder, initial encounter; V43.52XA Car driver injured in collision with other type car in traffic accident, initial encounter; Y93.9 Activity, unspecified; Y92.9 Unspecified place or not applicable
CPT/HCPCS: 71045; 72170; 73110; 73130; 73610; 90471; 90715; 99283

== ENCOUNTER → 2024-05-20 | Outpatient (CLI) | payer OTHER, SELFPAY ==
--- NOTE | 2024-05-20 13:09 | EKG12_ITS ---
Test Reason : PREOP Blood Pressure : / mmHG Vent. Rate : 084 BPM Atrial Rate : 084 BPM P-R Int : 152 ms QRS Dur : 070 ms QT Int : 364 ms P-R-T Axes : 051 025 022 degrees QTc Int : 430 ms Normal sinus rhythm Low voltage QRS Borderline ECG Confirmed by CAROLINE ROTHMAN, ABHIJEET ([id number]), map editor PATRICK DIOP ([id number]) on 05/21/2024 10:27:18 AM Referred By: Farida Cole Confirmed By:EDD VELAZQUEZ MD
[2024-05-20 15:08] LABS: Absolute Lymphocyte Count 1.96 X10^3/uL (0.83-4.51); Absolute Neutrophil Count 5.4 X10^3/uL (2.0-7.7); Basophil# 0.05 X10^3/uL; Basophil% 0.6 % (0-1); Eosinophil# 0.13 X10^3/uL; Eosinophils% 1.6 % (0-5); Hematocrit 44.7 % (37-47); Hemoglobin 15.1 g/dL (12.0-15.0); Lymphocyte # 1.96 X10^3/ul (0.83-4.51); Lymphocyte % 24.3 % (19-41); Mean Corp Hgb Conc 33.8 g/dL (32-36); Mean Corpuscular Hgb 29.3 pg (27.0-32.0); Mean Corpuscular Volume 86.6 fL (81-99); Mean Platelet Vol. 10.8 fl (6.2-12.0); Monocyte# 0.46 X10^3/uL; Monocyte% 5.7 % (0-10); NRBC Flagged by Analyzer 0 % (0-5); Neutrophil # 5.43 X10^3/uL (2.7-7.7); Neutrophil % 67.6 % (47-70); POSITIVE COUNT YES; RBC Distribution Width CV 12.6 % (11.6-14.6); RBC Distribution Width SD 39.9 fl (35.1-43.9); Red Blood Count 5.16 M/mm3 (4.2-5.4); White Blood Count 8.1 K/mm3 (4.4-11.0)
[2024-05-20 15:28] LABS: Differential Indicated SCAN CRITERIA MET
[2024-05-20 16:00] LABS: Platelet Estimate ADEQUATE (ADEQ)
== END | disposition home or self-care (01) ==
PROVIDERS: PCP Family Medicine; Referring Provider Physician Assistant Surgical; Visit Provider Physician Assistant Surgical
DX: Z01.818 Encounter for other preprocedural examination (principal)
CPT/HCPCS: 36415; 85025; 93005

== ENCOUNTER → 2024-05-25 | Outpatient (CLI) | payer OTHER, SELFPAY ==
[2024-05-25 09:15] LABS: Absolute Lymphocyte Count 1.92 X10^3/uL (0.83-4.51); Absolute Neutrophil Count 3.7 X10^3/uL (2.0-7.7); Basophil# 0.05 X10^3/uL; Basophil% 0.8 % (0-1); Eosinophil# 0.15 X10^3/uL; Eosinophils% 2.4 % (0-5); Hematocrit 42.9 % (37-47); Hemoglobin 14.4 g/dL (12.0-15.0); Lymphocyte # 1.92 X10^3/ul (0.83-4.51); Lymphocyte % 31.2 % (19-41); Mean Corp Hgb Conc 33.6 g/dL (32-36); Mean Corpuscular Hgb 29.3 pg (27.0-32.0); Mean Corpuscular Volume 87.2 fL (81-99); Mean Platelet Vol. 10.1 fl (6.2-12.0); Monocyte# 0.34 X10^3/uL; Monocyte% 5.5 % (0-10); NRBC Flagged by Analyzer 0 % (0-5); Neutrophil # 3.67 X10^3/uL (2.7-7.7); Neutrophil % 59.8 % (47-70); Platelet Count 200 K/mm3 (150-450); RBC Distribution Width CV 12.4 % (11.6-14.6); RBC Distribution Width SD 39.4 fl (35.1-43.9); Red Blood Count 4.92 M/mm3 (4.2-5.4); White Blood Count 6.2 K/mm3 (4.4-11.0)
[2024-05-25 09:55] LABS: Anion Gap 7 (5-15); BUN 16 mg/dL (7-18); BUN/Creat Ratio 16.5 RATIO (10-20); Calcium,Total 8.7 mg/dL (8.5-10.1); Chloride 111 mmol/L (98-107); Creatinine, Serum 0.97 mg/dL (0.55-1.02); EST Glomerular Filtration Rate 63 mL/min (>60); Est Glom Filt Rate - Afr Amer 77 mL/min (>60); Glucose 147 mg/dL (74-106); Sodium Level 141 mmol/L (136-145)
== END | disposition home or self-care (01) ==
LOC: LAB 08:26
PROVIDERS: PCP Family Medicine; Referring Provider Student in an Organized Health Care Education/Training Program; Visit Provider Student in an Organized Health Care Education/Training Program
DX: Z01.818 Encounter for other preprocedural examination (principal)
CPT/HCPCS: 36415; 80048; 85025

== ENCOUNTER → 2025-04-28 | Outpatient (CLI) | payer OTHER, SELFPAY ==
--- NOTE | 2025-04-28 15:46 | BI_ITS ---
EXAM: SCRN MAMM (CAD)W/SHAAN BILAT DATE: 04/28/2025 CLINICAL HISTORY: F, Age 54 y/o , BILAT BRST SCREEN SHAAN ADD-ON No family history. History of bilateral saline implants. TECHNIQUE: SCRN MAMM (CAD)W/SHAAN BILAT COMPARISON: Prior exam(s) dated May 15, 2023.. FINDINGS: TISSUE DENSITY: There are scattered areas of fibroglandular density. Bilateral Breast Mammographic Findings: No significant masses, calcifications or other abnormalities are identified. Stable appearance of the bilateral breast implants. No suspicious masses, areas of developing architectural distortion, or suspicious calcifications. There has been no significant interval change. BI/SCRN MAMM (CAD)W/SHAAN BILAT IMPRESSION: Stable examination. OVERALL FINAL ASSESSMENT BI-RADS 2: BENIGN RECOMMEND ANNUAL MAMMOGRAPHIC SCREENING. RECOMMENDATION: Routine annual follow-up in 1 Year A letter with findings and recommendations will be mailed to the patient. Reading Location: [facility]
== END | disposition home or self-care (01) ==
LOC: OPBI 15:45
PROVIDERS: PCP Family Medicine; Referring Provider Internal Medicine; Visit Provider Internal Medicine
DX: Z12.31 Encounter for screening mammogram for malignant neoplasm of breast (principal)
CPT/HCPCS: 77063; 77067